=== PATIENT | female | born 1975 | race Caucasian/White ===

== ENCOUNTER 2017-10-26 02:07 | Inpatient (IN) | payer OTHER ==
[~2017-10-26] VITALS: Ht 162.6 cm; Wt 86.2 kg
[2017-10-26 04:00] LABS: ABSOLUTE BASOPHIL COUNT 0 /CUMM (0.0-0.2); ABSOLUTE EOSINOPHIL COUNT 0.1 /CUMM (0.0-0.7); ABSOLUTE GRANULOCYTE CT 6.2 /CUMM (1.4-6.5); ABSOLUTE LYMPH COUNT 1.8 /CUMM (1.2-3.4); ABSOLUTE MONOCYTE COUNT 0.7 /CUMM (0.10-0.60); BASOPHIL % 0.3 % (0.0-2.0); EOSINOPHIL % 0.9 % (0-5); GRANULOCYTE % 70.2 % (42.2-75.2); HEMATOCRIT 36.5 % (37-47); MEAN CORPUSCULAR HGB 29.3 PG (27.0-31.0); MEAN CORPUSCULAR HGB CONC 33.7 G/DL (33.0-37.0); MEAN CORPUSCULAR VOLUME 86.7 FL (81.0-99.0); MEAN PLATELET VOLUME 8.6 FL (7.4-10.4); PLATELET COUNT 247 /CUMM (130-400); RBC DISTRIBUTION WIDTH 13.4 % (11.5-14.5); RED BLOOD CELL CT 4.22 /CUMM (4.20-5.40); WHITE BLOOD CELL COUNT 8.9 /CUMM (4.8-10.8)
--- NOTE | 2017-10-26 05:24 | ED GI/GU/ABDOMINAL COMPLAINT ---
History of Present Illness General Chief Complaint: Abdominal Pain/Flank Pain Stated Complaint: ABD PAIN Source: patient Exam Limitations: no limitations Vital Signs & Intake/Output Vital Signs & Intake/Output Vital Signs Date Time Temp Pulse Resp B/P B/P Pulse O2 O2 Flow FiO2 Mean Ox Delivery Rate 10/26 0551 96 Room Air 10/26 0550 96.7 95 18 112/69 96 Room Air 10/26 0213 96.7 120 22 104/71 100 Room Air Allergies Coded Allergies: No Known Allergies (10/26/17) Triage Note: PT TO TRIAGE C/O 04/12 STABBING UPPER ABD PAIN WITH N/V. PER PT PAIN IS INTERMITTENT SINCE AUGUST WHEN SHE WAS HOSPITALIZED FOR PANCREATITIS. PT REPORTS PAIN WORSENS WITH EATING. Triage Nurses Notes Reviewed? yes LMP (ages 10-50): unknown ? n Is pt currently ? No Onset: several days Duration: day(s):, continues in ED, intermittent Timing: recent history Quality/Severity: aching, sharpness, severe, stabbing Location: epigastric Radiation: no radiation Activities at Onset: eating Prior Abdominal Problems: similar symptoms Past Sexual History: Unobtainable at this time Modifying Factors: Worsens With: eating. Associated Symptoms: abdominal pain, loss of appetite, nausea/vomiting HPI: 3 months prior to admission patient reports being diagnosed with pancreatitis with unknown etiology [facility], [place]. She has undergone CT, ultrasound, endoscopy and colonoscopy. Several days prior to admission she complains of epigastric pain sharp some previous pancreatitis pain worse after eating waxing and waning nonradiating moderate to severe in quality. She does fever chills diarrhea chest pain cough shortness of breath headache dysuria rash bleeding. Past History Travel History Traveled to [place] past 21 day No Medical History Any Pertinent Medical History? 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 No Review of Systems Review of Systems Constitutional: Reports: no symptoms. EENTM: Reports: no symptoms. Respiratory: Reports: no symptoms. Cardiovascular: Reports: no symptoms. GI: Reports: see HPI, abdominal pain, nausea, vomiting. Genitourinary: Reports: no symptoms. Musculoskeletal: Reports: no symptoms. Skin: Reports: no symptoms. Neurological/Psychological: Reports: no symptoms. Hematologic/Endocrine: Reports: no symptoms. Immunologic/Allergic: Reports: no symptoms. All Other Systems: Reviewed and Negative Physical Exam Physical Exam General Appearance: well developed/nourished, alert, awake, anxious, moderate distress, obese Head: atraumatic, normal appearance Eyes: Bilateral: normal appearance, PERRL, EOMI, normal inspection. Ears, Nose, Throat, Mouth: hearing grossly normal, moist mucous membrane Neck: normal inspection, supple, full range of motion, normal alignment Respiratory: normal breath sounds, chest non-tender, no respiratory distress, quiet respiration, lungs clear Cardiovascular: regular rate/rhythm, normal peripheral pulses, norml femoral pulses equa Peripheral Pulses: 4+ carotid (R), 4+ carotid (L) Gastrointestinal: normal bowel sounds, soft, no organomegaly, tenderness Back: normal inspection, normal range of motion, no vertebral tenderness Extremities: normal range of motion, no ligament instability Neurologic/Psych: no motor/sensory deficits, awake, alert, oriented x 3, normal gait, normal mood/affect, 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 No Sepsis Present: No Sepsis Focused Exam Completed? No Mcewen's Criteria Sana's Criteria Response Value LDH > 350 IU/L on Admission yes 1 Total 1 Progress Differential Diagnosis: biliary colic, cholecystitis, gastritis, pancreatitis Plan of Care: Orders Procedure Date/time Status Nothing by Mouth 10/26 B Active Patient Data 10/26 614 Active US-LIMITED ABDOMEN 10/26 518 Active OXYGEN SETUP (GEN) 10/26 518 Active Saline Lock 10/26 518 Active Admit to inpatient 10/26 518 Active Add-on Test (ER Only) 10/26 518 Active Vital Signs 10/26 518 Active Activity/Ambulation 10/26 518 Active Code Status 10/26 518 Active LDH (LACT ACID DEHYDROGENASE) 10/26 035 Complete TROPONIN LEVEL 10/26 348 Complete LIPASE 10/26 348 Complete HUMAN BETA HCG SCREEN 10/26 348 Complete COMPREHENSIVE METABOLIC PANEL 10/26 348 Complete CBC WITHOUT DIFFERENTIAL 10/26 348 Complete AMYLASE 10/26 348 Complete Current Medications Sig/Brianna Start time Last Medication Dose Stop Time Status Admin Sodium Chloride 1,000 ML BOLUS ONE 10/26 05 AC 10/26 (Normal Saline 0.9%) 10/26 0529 0540 Laboratory Tests 10/26/17 0350: Anion Gap 11, Estimated GFR > 60, BUN/Creatinine Ratio 15.0, Glucose 116 H, Calcium 9.7, Total Bilirubin 0.6, AST 21, ALT 25, Alkaline Phosphatase 98, Lactate Dehydrogenase 398, Troponin I < 0.01, Total Protein 6.9, Albumin 4.1, Globulin 2.8, Albumin/Globulin Ratio 1.5, Amylase 407 H, Lipase 3949 H, Total Beta HCG NEGATIVE, CBC w Diff NO MAN DIFF REQ, RBC 4.22, MCV 86.7, MCH 29.3, MCHC 33.7, RDW 13.4, MPV 8.6, Gran % 70.2, Lymphocytes % 20.2 L, Monocytes % 8.4, Eosinophils % 0.9, Basophils % 0.3, Absolute Granulocytes 6.2, Absolute Lymphocytes 1.8, Absolute Monocytes 0.7 H, Absolute Eosinophils 0.1, Absolute Basophils 0 Initial ED EKG: none Departure Departure Disposition: STILL A PATIENT Condition: Stable Clinical Impression Primary Impression: Pancreatitis Referrals: Patient Has No Primary Care Dr (PCP/Family) Departure Forms: Customer Survey General Discharge Information Admission Note Spoke With: Gwen Penaloza MD Documentation of Exam: Documentation of any treatments & extenuating circumstances including Concerns Regarding Discharge (functional status, medication knowledge or non-compliance, living conditions, etc.) that warrant an admission rather than observation:
--- NOTE | 2017-10-26 07:55 | History & Physical ---
Alvaro Wheeler 10/26/17 0755: General Information and HPI MD Statement: I have seen and personally examined ALEXIA DOUGLASS and documented this H&P. The patient is a 42 year old F who presented with a patient stated chief complaint of worsening abdominal pain since last night. Source of Information: patient Exam Limitations: no limitations History of Present Illness: This is a healthy 42-year-old female with past medical history significant for hypothyroidism on [place] Thyroid, history of pancreatitis presented to the emergency department for evaluation of worsening abdomen pain since last night. Patient reports history of pancreatitis in the past. She was admitted to [facility] in August 2017 for acute pancreatitis, hospitalized for 4 days , CAT scan abdomen normal, on ultrasound no gall stones were found, amylase lipase elevated. she underwent endoscopy and colonoscopy, normal findings. she has been following up with naval inspector at [facility] since she had an episode of pancreatitis. she underwent gastric emptying study, gastroparesis was not found. she went to [facility] emergency room 2 weeks back for acute pancreatitis, discharged from the emergency room. she is supposed to get mri abdomen next week. She denies any alcohol abuse. No gallstones were found in prior ultrasound. Lipid panel was normal in the past. No etiology for acute pancreatitis was found according to the patient. Patient now came in with worsening epigastric abdominal pain, 10 out of 10, sharp radiating to her back associated with nausea, vomiting, shortness of breath. She reports that some kinds of food triggers her pancreatitis. She also reports heartburn. Denies any constipation, diarrhea, change in urine habits. Review of systems negative for fever, chills, shortness of breath, palpitations, chest pain, productive cough, generalized weakness, neurologic deficits. She denies smoking, alcohol abuse, illicit drug abuse. She lives with her and 3 children. Allergies/Medications Allergies: Coded Allergies: No Known Allergies (10/26/17) Home Med list Thyroid,Pork ([place] Thyroid) 30 MG TABLET 3 TAB PO DAILY THYROID (Reported) Compliance With Home Meds: GOOD Past History Travel History Traveled to [place] past 21 day No Medical History Neurological: NONE EENT: NONE Cardiovascular: NONE Respiratory: NONE Gastrointestinal: pancreatitis, HERNIA Hepatic: NONE Renal: NONE Musculoskeletal: NONE Psychiatric: NONE Endocrine: NONE Blood Disorders: NONE Cancer(s): NONE FACE MAN/Reproductive: NONE Surgical History Surgical History: non-contributory Past Family/Social History Family History Relations & Conditions if any Relation not specified for: *No pertinent family history Psychosocial History Smoking Status: Never Smoked ETOH Use: denies use Illicit Drug Use: denies illicit drug use Sexual History Past Sexual History Unobtainable at this time Review of Systems Review of Systems Constitutional: Denies: chills, diaphoresis, fever, malaise, weakness, unexplained weight loss. EENTM: Denies: blurred vision, double vision, visual changes. Cardiovascular: Denies: chest pain, edema, orthopena, palpitations, peripheral edema, syncope. Respiratory: Denies: cough, hemoptysis, orthopnea, short of breath, sputum production, stridor, wheezing. GI: Reports: abdominal pain, nausea, vomiting. Denies: bloating, constipation, diarrhea, distention, bowel incontinence, melena. Genitourinary: Denies: discharge, dysuria, frequency, hematuria, hesitation. Musculoskeletal: Denies: back pain, gout, joint pain, joint swelling. Skin: Denies: cysts, jaundice, lesions. Neurological/Psychological: Denies: anxiety, ataxia, confusion, depressed, dementia. Hematologic/Endocrine: Denies: bruising, bleeding, polyuria. Exam & Diagnostic Data Last 24 Hrs of Vital Signs/I&O Vital Signs Date Time Temp Pulse Resp B/P B/P Pulse O2 O2 Flow FiO2 Mean Ox Delivery Rate 10/26 0643 96.2 83 18 100/57 100 Room Air 10/26 0551 96 Room Air 10/26 0550 96.7 95 18 112/69 96 Room Air 10/26 0213 96.7 120 22 104/71 100 Room Air Intake & Output 10/26 1600 10/26 0800 10/26 0000 Intake Total 1000 Output Total Balance 1000 Intake, IV 1000 Patient 86.183 kg Weight Physical Exam General Appearance Alert, Oriented X3, Cooperative, No Acute Distress Skin No Rashes, No Breakdown, No Significant Lesion Skin Temp/Moisture Exam: Warm/Dry Sepsis Skin Exam (color): Normal for Ethnicity HEENT Atraumatic, PERRLA, EOMI, Mucous Membr. moist/pink Neck Supple, No JVD Lymphatic Axillary nl, Cervical nl Cardiovascular Regular Rate, Normal S1, Normal S2, No Murmurs Lungs Normal Air Movement Abdomen Normal Bowel Sounds, Soft, epigastric tenderness Neurological Strength at 5/5 X4 Ext, Normal Tone, Cranial Nerves 3-12 NL, Reflexes 2+ Extremities No Clubbing, No Cyanosis, No Edema Vascular Normal Pulses, Pulses Symmetrical Last 24 Hrs of Labs/Zheng: Laboratory Tests 10/26/17 0801: Triglycerides Cancelled, Cholesterol Cancelled, LDL Cholesterol, Calc Cancelled, HDL Cholesterol Cancelled, Cholesterol/HDL Ratio Cancelled 10/26/17 0350: Anion Gap 11, Estimated GFR > 60, BUN/Creatinine Ratio 15.0, Glucose 116 H, Calcium 9.7, Total Bilirubin 0.6, AST 21, ALT 25, Alkaline Phosphatase 98, Lactate Dehydrogenase 398, Troponin I < 0.01, Total Protein 6.9, Albumin 4.1, Globulin 2.8, Albumin/Globulin Ratio 1.5, Triglycerides 109, Cholesterol 208 H, LDL Cholesterol, Calc 138 H, HDL Cholesterol 49, Cholesterol/HDL Ratio 4, Amylase 407 H, Lipase 3949 H, Total Beta HCG NEGATIVE, CBC w Diff NO MAN DIFF REQ, RBC 4.22, MCV 86.7, MCH 29.3, MCHC 33.7, RDW 13.4, MPV 8.6, Gran % 70.2, Lymphocytes % 20.2 L, Monocytes % 8.4, Eosinophils % 0.9, Basophils % 0.3, Absolute Granulocytes 6.2, Absolute Lymphocytes 1.8, Absolute Monocytes 0.7 H, Absolute Eosinophils 0.1, Absolute Basophils 0 Assessment/Plan Assessment: This is a healthy 42-year-old female with past medical history significant for hypothyroidism on [place] Thyroid, history of pancreatitis presented to the emergency department for evaluation of worsening abdomen pain since last night. Patient reports history of pancreatitis in the past. She was admitted to [facility] in August 2017 for acute pancreatitis, hospitalized for 4 days , CAT scan abdomen normal, on ultrasound no gall stones were found, amylase lipase elevated. she underwent endoscopy and colonoscopy, normal findings. she has been following up with naval inspector at [facility] since she had an episode of pancreatitis. she underwent gastric emptying study, gastroparesis was not found. she went to [facility] emergency room 2 weeks back for acute pancreatitis, discharged from the emergency room. she is supposed to get mri abdomen next week. --------- Vitals afebrile, heart rate 120, respiratory rate 20, blood pressure 104/60 saturating at 100 on room air. Pertinent labs at the time of admission CBC, BEP within normal limit liver function tests normal troponin normal Amylase 47, lipase 3943 Patient received Dilaudid, Zofran, 1 L of normal saline bolus in the emergency room. Ultrasound abdomen 1. The gallbladder contains multiple tiny layering stones, with gallbladder wall thickening, fluid in the gallbladder wall and pericholecystic fluid. These findings are consistent with acute cholecystitis in the correct clinical setting. 1. Acute gallstone pancreatitis Patient presented with epigastric abdominal pain, 10 out of 10, sharp, radiating to back, nausea, vomiting, short of breath. Patient has prior history of pancreatitis in August 2017. She denies alcohol abuse. She is hemodynamically stable. Amylase and lipase were elevated 407, 3943. Ultrasound abdomen was done in the emergency room which showed gallstones and pericholecystic fluid consistent with acute cholecystitis. * Acute pancreatitis mostly from gallstone pancreatitis. * No alcohol abuse * Will check lipid panel * Admit to Gen.med for management of acute pancreatitis * Surgical consult for acute cholecystitis * nothing by mouth * IV Ringer lactate 125 mL per hour * Antiemetics * Pain management Tylenol, Toradol, diluted * IV Protonix * Follow-up surgery recommendations. Hypothyroidism continue home medication [place] Thyroid 90 mg Sunday to Sunday, 120 mg Sunday, Sunday DVT prophylaxis subcutaneous heparin, Alps Patient is nothing by mouth Full code Pain pathway ordered As Ranked By This Provider Problem List: 1. Pancreatitis Core Measures/Misc (05/20) Acute Coronary Syndrome ACS Diagnosis: No Congestive Heart Failure Congestive Heart Failure Diagnosis No Cerebrovascular Accident CVA/TIA Diagnosis: No VTE (View Protocol) VTE Risk Factors No risk factors No Mechanical VTE Prophylaxis d/t N/A MechProphylax Ordered No VTE Pharm Prophylaxis d/t NA PharmProphylax ordered Sepsis (View protocol) Sepsis Present: No Obdulia Claros MD 10/26/17 1230: Attending MD Review Statement Attending Statement Attending MD Statement: examined this patient, discuss w/resident/PA/DRAIN CLEANER PLUMBER, agreed w/resident/PA/DRAIN CLEANER PLUMBER, discussed with family, reviewed EMR data (avail), discussed with nursing, reviewed images, amended to note Attending Assessment/Plan: 42-year-old female with past medical history significant for hypothyroidism, on [place] Thyroid. Has been seen at [facility] with abdominal pain and had a pretty extensive workup done including CT abdomen, ultrasound, endoscopy and colonoscopy and gastric imaging study with no significant results found as reported by the patient who presents to [facility] emergency room with abdominal pain. It is mostly in the epigastric region but does radiate to back. It was severe in intensity. It is associated with nausea and vomiting. Food seems to aggravate it. Patient had an abdominal ultrasound in the emergency room which showed gallstone and evidence of acute cholecystitis. This is also high which is consistent with acute pancreatitis. Vital Signs Date Time Temp Pulse Resp B/P B/P Pulse O2 O2 Flow FiO2 Mean Ox Delivery Rate 10/26 0643 96.2 83 18 100/57 100 Room Air 10/26 0551 96 Room Air 10/26 0550 96.7 95 18 112/69 96 Room Air 10/26 0213 96.7 120 22 104/71 100 Room Air on exam; aox3, nad. cv; s1,s2, rrr resp; clear abd; soft, tender in epogastrium, bs+ ext; no edema Laboratory Tests 10/26 10/26 0801 0350 Chemistry Sodium (137 - 145 mmol/L) 141 Potassium (3.5 - 5.1 mmol/L) 3.9 Chloride (98 - 107 mmol/L) 105 Carbon Dioxide (22 - 30 mmol/L) 25 Anion Gap (5 - 16) 11 BUN (7 - 17 mg/dL) 12 Creatinine (0.5 - 1.0 mg/dL) 0.8 Estimated GFR (>60 ml/min) > 60 BUN/Creatinine Ratio (7 - 25 %) 15.0 Glucose (65 - 99 mg/dL) 116 H Calcium (8.4 - 10.2 mg/dL) 9.7 Total Bilirubin (0.2 - 1.3 mg/dL) 0.6 AST (14 - 36 U/L) 21 ALT (9 - 52 U/L) 25 Alkaline Phosphatase (<127 U/L) 98 Lactate Dehydrogenase (313 - 618 U/L) 398 Troponin I (< 0.11 ng/ml) < 0.01 Total Protein (6.3 - 8.2 g/dL) 6.9 Albumin (3.5 - 5.0 g/dL) 4.1 Globulin (1.9 - 4.2 gm/dL) 2.8 Albumin/Globulin Ratio (1.1 - 2.2 %) 1.5 Triglycerides (<150 mg/dL) Cancelled 109 Cholesterol (<200 MG/DL) Cancelled 208 H LDL Cholesterol, Calc (65 - 129 mg/dL) Cancelled 138 H HDL Cholesterol (40 - 60 mg/dL) Cancelled 49 Cholesterol/HDL Ratio (0.00 - 4.23 %) Cancelled 4 Amylase (30 - 110 U/L) 407 H Lipase (23 - 300 U/L) 3949 H Total Beta HCG (NEGATIVE) NEGATIVE Hematology CBC w Diff NO MAN DIFF REQ WBC (4.8 - 10.8 /CUMM) 8.9 RBC (4.20 - 5.40 /CUMM) 4.22 Hgb (12.0 - 16.0 G/DL) 12.3 Hct (37 - 47 %) 36.5 L MCV (81.0 - 99.0 FL) 86.7 MCH (27.0 - 31.0 PG) 29.3 MCHC (33.0 - 37.0 G/DL) 33.7 RDW (11.5 - 14.5 %) 13.4 Plt Count (130 - 400 /CUMM) 247 MPV (7.4 - 10.4 FL) 8.6 Gran % (42.2 - 75.2 %) 70.2 Lymphocytes % (20.5 - 51.1 %) 20.2 L Monocytes % (1.7 - 9.3 %) 8.4 Eosinophils % (0 - 5 %) 0.9 Basophils % (0.0 - 2.0 %) 0.3 Absolute Granulocytes (1.4 - 6.5 /CUMM) 6.2 Absolute Lymphocytes (1.2 - 3.4 /CUMM) 1.8 Absolute Monocytes (0.10 - 0.60 /CUMM) 0.7 H Absolute Eosinophils (0.0 - 0.7 /CUMM) 0.1 Absolute Basophils (0.0 - 0.2 /CUMM) 0 US abd: IMPRESSION: 1. The gallbladder contains multiple tiny layering stones, with gallbladder wall thickening, fluid in the gallbladder wall and pericholecystic fluid. These findings are consistent with acute cholecystitis in the correct clinical setting. 2. The visualized pancreas is unremarkable. A/P; 50-year-old female with history significant for chronic abdominal pain off and on who was admitted with acute on chronic abdominal pain, nausea and vomiting as well as acute pancreatitis and acute cholecystitis with gallstones. Patient admitted to medicine. She will be kept nothing by mouth, hydrated with IV fluids. She will be started on pain management as well as antiemetics. Please consult surgery. DVT px: Heparin subcutaneous. GI prophylaxis: IV Protonix. Patient is a full code. Discussed with family at bedside.
[2017-10-26] MEDS ORDERED: ARMOUR THYROID30 M1 PO (08:09)
--- NOTE | 2017-10-26 08:15 | ULTRASOUND REPORT ---
EXAMINATION: US ABDOMEN LIMITED CLINICAL INFORMATION: Epigastric pain, nausea and vomiting, lipase 4000. Assess for pancreatitis.. COMPARISON: None. TECHNIQUE: Real-time imaging of the right upper quadrant abdominal viscera was obtained. FINDINGS: PANCREAS: The visualized pancreatic head and body are normal in appearance. The remainder of the pancreas is obscured from visualization by the overlying bowel gas. LIVER: The liver demonstrates normal size, contour and echogenicity. No focal lesion or intrahepatic biliary duct dilatation. GALLBLADDER: The the gallbladder is moderately well distended. There are multiple tiny layering stones with posterior shadowing. The gallbladder wall is thickened measuring 0.8 cm, and there is some fluid in the gallbladder wall. The is pericholecystic fluid. The patient was not tender in the right, had been medicated one hour prior. COMMON BILE DUCT: Normal in caliber measuring 0.5 cm in diameter. RIGHT KIDNEY: There is no hydronephrosis. No renal calculi or focal parenchymal lesions. The kidney measures 9.8 cm in maximum dimension. FREE FLUID: None. IMPRESSION: 1. The gallbladder contains multiple tiny layering stones, with gallbladder wall thickening, fluid in the gallbladder wall and pericholecystic fluid. These findings are consistent with acute cholecystitis in the correct clinical setting. 2. The visualized pancreas is unremarkable.
--- NOTE | 2017-10-26 11:17 | Cons- General Surgery ---
General Information and HPI Consulting Request Date of Consult: 10/26/17 Requested By: ER Reason for Consult: pancreatitis History of Present Illness: This is a relatively healthy 42-year-old woman who presents to emergency room with recurrent episodic epigastric abdominal pain. She has been seen previously at another facility ERs. Diagnosis of pancreatitis was given without definitive etiology seen. Patient complains of recurrent epigastric abdominal pain beginning last night after a meal. It was quite severe in nature. She describes prior episodes more recently that were managed at home without need for medical attention. Currently she feels much better. Allergies/Medications Allergies: Coded Allergies: No Known Allergies (10/26/17) Home Med List: Thyroid,Pork ([place] Thyroid) 30 MG TABLET 3 TAB PO DAILY THYROID (Reported) Current Medications: Current Medications Sig/Brianna Start time Last Medication Dose Route Stop Time Status Admin Acetaminophen 650 MG Q6P PRN 10/26 0800 AC PO Enoxaparin Sodium 40 MG DAILY 10/26 1000 CAN SC Heparin Sodium 5,000 UNIT Q8 10/26 1400 UNVr (Porcine) SC Hydromorphone HCl 0.5 MG Q4P PRN 10/26 0800 UNVr IV Hydromorphone HCl 0 .STK-MED ONE 10/26 0548 DC .ROUTE Hydromorphone HCl 0.5 MG ONCE ONE 10/26 0530 DC 10/26 IV 10/26 0531 0549 Ketorolac 15 MG Q6P PRN 10/26 0800 AC Tromethamine IV Lactated Ringer's 1,000 ML Q8H 10/26 0815 AC 10/26 IV 0828 Non-Formulary 0 SEE ADMIN CRITERIA 10/26 0945 UNVr Medication ANY Ondansetron HCl 4 MG Q6P PRN 10/26 0815 AC IV Ondansetron HCl 0 .STK-MED ONE 10/26 0547 DC .ROUTE Ondansetron HCl 4 MG ONCE ONE 10/26 0530 DC 10/26 IV 10/26 0531 0549 Pantoprazole Sodium 0 .STK-MED ONE 10/26 1158 DC IV Pantoprazole Sodium 40 MG DAILY 10/26 1000 UNVr 10/26 IV 1201 Sodium Chloride 1,000 ML BOLUS ONE 10/26 0530 DC 10/26 IV 10/26 0629 0540 Past History Medical History Neurological: NONE EENT: NONE Cardiovascular: NONE Respiratory: NONE Gastrointestinal: pancreatitis Hepatic: NONE Renal: NONE Musculoskeletal: NONE Psychiatric: NONE Endocrine: hypothyroidism Blood Disorders: NONE 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 Remainder 12 points negative Exam & Diagnostic Data Vital Signs and I&O Vital Signs Date Time Temp Pulse Resp B/P B/P Pulse O2 O2 Flow FiO2 Mean Ox Delivery Rate 10/26 0643 96.2 83 18 100/57 100 Room Air 10/26 0551 96 Room Air 10/26 0550 96.7 95 18 112/69 96 Room Air 10/26 0213 96.7 120 22 104/71 100 Room Air Intake & Output 10/26 1600 10/26 0800 10/26 0000 10/25 1600 10/25 0800 10/25 0000 Intake Total 1000 Output Total Balance 1000 Intake, IV 1000 Patient 190 lb Weight Physical Exam: Gen.: She looks well her stated age no distress HEENT: Anicteric PERRL EOMI Abdomen: Soft nontender nondistended negative Durbin sign Extremities: no cyanosis clubbing or edema Last 24 Hours of Labs: Laboratory Tests 10/26 10/26 0801 0350 Chemistry Sodium (137 - 145 mmol/L) 141 Potassium (3.5 - 5.1 mmol/L) 3.9 Chloride (98 - 107 mmol/L) 105 Carbon Dioxide (22 - 30 mmol/L) 25 Anion Gap (5 - 16) 11 BUN (7 - 17 mg/dL) 12 Creatinine (0.5 - 1.0 mg/dL) 0.8 Estimated GFR (>60 ml/min) > 60 BUN/Creatinine Ratio (7 - 25 %) 15.0 Glucose (65 - 99 mg/dL) 116 H Calcium (8.4 - 10.2 mg/dL) 9.7 Total Bilirubin (0.2 - 1.3 mg/dL) 0.6 AST (14 - 36 U/L) 21 ALT (9 - 52 U/L) 25 Alkaline Phosphatase (<127 U/L) 98 Lactate Dehydrogenase (313 - 618 U/L) 398 Troponin I (< 0.11 ng/ml) < 0.01 Total Protein (6.3 - 8.2 g/dL) 6.9 Albumin (3.5 - 5.0 g/dL) 4.1 Globulin (1.9 - 4.2 gm/dL) 2.8 Albumin/Globulin Ratio (1.1 - 2.2 %) 1.5 Triglycerides (<150 mg/dL) Cancelled 109 Cholesterol (<200 MG/DL) Cancelled 208 H LDL Cholesterol, Calc (65 - 129 mg/dL) Cancelled 138 H HDL Cholesterol (40 - 60 mg/dL) Cancelled 49 Cholesterol/HDL Ratio (0.00 - 4.23 %) Cancelled 4 Amylase (30 - 110 U/L) 407 H Lipase (23 - 300 U/L) 3949 H Total Beta HCG (NEGATIVE) NEGATIVE Hematology CBC w Diff NO MAN DIFF REQ WBC (4.8 - 10.8 /CUMM) 8.9 RBC (4.20 - 5.40 /CUMM) 4.22 Hgb (12.0 - 16.0 G/DL) 12.3 Hct (37 - 47 %) 36.5 L MCV (81.0 - 99.0 FL) 86.7 MCH (27.0 - 31.0 PG) 29.3 MCHC (33.0 - 37.0 G/DL) 33.7 RDW (11.5 - 14.5 %) 13.4 Plt Count (130 - 400 /CUMM) 247 MPV (7.4 - 10.4 FL) 8.6 Gran % (42.2 - 75.2 %) 70.2 Lymphocytes % (20.5 - 51.1 %) 20.2 L Monocytes % (1.7 - 9.3 %) 8.4 Eosinophils % (0 - 5 %) 0.9 Basophils % (0.0 - 2.0 %) 0.3 Absolute Granulocytes (1.4 - 6.5 /CUMM) 6.2 Absolute Lymphocytes (1.2 - 3.4 /CUMM) 1.8 Absolute Monocytes (0.10 - 0.60 /CUMM) 0.7 H Absolute Eosinophils (0.0 - 0.7 /CUMM) 0.1 Absolute Basophils (0.0 - 0.2 /CUMM) 0 Imaging Results: Ultrasound shows gallstones with pericholecystic fluid. Common bile duct is normal. Assessment/Plan Assessment/Plan Gallstone Pancreatitis. It appears to be a mild case of pancreatitis which is already resolved clinically. Recommend laparoscopic cholecystectomy when and OR room is available. She is informed of the risks of the operation including bleeding, infection, conversion to open, organ injury and the presence of postcholecystectomy diarrhea. She agrees to proceed. Consult Acknowledgment - Thank you for your consult request.
--- NOTE | 2017-10-26 15:51 | Operative Report ---
Operative/Inv Procedure Report Surgery Date: 10/26/17 Name of Procedure: Laparoscopic cholecystectomy Pre-Operative Diagnosis: Biliary pancreatitis Post-Operative Diagnosis: Same Estimated Blood Loss: scant Surgeon/Datawarehouse Developer: Foreign Wyatt M.D./Milad ESCOBAR Anesthesia: general endotracheal tube Drains: None Specimens: Gallbladder Operative Indication: 42-year-old woman with mild acute pancreatitis due to gallstones. She presents for resection Operative/Procedure Note Note: After informed consent patient is brought to the operating room and laid supine. General anesthesia was obtained and her abdomen was prepped and draped. The skin above the umbilicus infiltrated with local anesthesia and a curvilinear incision made sharply. We came down through the subcutaneous tissues bluntly and grasped the fascia with [place]'s. A fasciotomy was created sharply and stay sutures placed. The peritoneum was entered sharply and a blunt [place] port was placed. Pneumoperitoneum was achieved. 3, 5 mm ports were placed in the epigastrium and right upper quadrant after local anesthesia was instilled and under direct vision the camera. She's placed in reverse Trendelenburg and rotated towards the left. The gallbladder is identified. It was grasped at the dome and retracted towards the head. Infundibulum was then grasped. Adhesions to the undersurface were taken down with blunt and cautery dissection. We dissected both sides the triangle Cal[place] peritoneal tissue with cautery. There is diffuse watery inflammatory changes of the gallbladder and the triangle of Calot. The artery was medial and its normal anatomic position. It was cauterized medially to allow it to be mobilized away from the duct. In doing so , multiple branches of the artery were divided with cautery. The main branch was lower down. We clipped ligated the terminal branches of the artery. [place] was cleared of areolar tissue with cautery. The duct were doubly ligated with clips. Gallbladder is removed from the fossa electrocautery. It was placed in Endo Catch bag and cinched up. Right upper quadrant was and suction irrigated normal saline. Hemostasis achieved with cautery. The ports were then removed and the gallbladder delivered and passed off the field. The fascia was closed with 0 Vicryl suture. Skin incisions closed with 4-0 Vicryl. Steri-Strips and sterile dressing applied. Sponge and needle counts are correct.
[2017-10-26 17:53] VITALS: BP 92/64
[2017-10-26 21:12] VITALS: BP 98/50
--- NOTE | 2017-10-26 21:23 | PN- General Surgery ---
Subjective Subjective: POSTOP CHECK Katarzyna is now s/p lap cholecystectomy for gallstone pancreatitis. She tolerated the procedure well and returned to the [facility] floor in stable condition. She was tachycardic and borderline hypotensive shortly after arrival to the floor, but this is improving with po intake. At this time, she c/o sore throat and some "gas bubbling" in her abdomen, but no significant pain. The pain she had prior to surgery has completely resolved. She is tolerating clear liquids. No nausea or vomiting. Voided x 2. Otherwise denies PLASENCIA, dizziness, chest pain, SOB. Objective Vital Signs and I&Os Vital Signs Date Time Temp Pulse Resp B/P B/P Pulse O2 O2 Flow FiO2 Mean Ox Delivery Rate 10/26 2111 98.5 85 18 98/50 96 10/26 1753 97.9 106 18 92/64 96 Room Air 10/26 0643 96.2 83 18 100/57 100 Room Air 10/26 0551 96 Room Air 10/26 0550 96.7 95 18 112/69 96 Room Air 10/26 0213 96.7 120 22 104/71 100 Room Air Intake & Output 10/26 1600 10/26 0800 10/26 0000 10/25 1600 10/25 0800 10/25 0000 Intake Total 1000 Output Total Balance 1000 Intake, IV 1000 Patient 190 lb Weight Physical Exam: Gen: Pt is awake and alert. NAD. Cardiac: regular Pulmonary: CTA bilaterally. No wheezes or rales appreciated. Abdomen: Soft and nondistended. Mild tenderness in the upper abdomen, within expected limits. Dressings are clean and intact. Normal BS are heard. Assessment/Plan Assessment/Plan Pt is a 42 yo F who is s/p lap elina for gallstone pancreatitis. She remains stable from a surgical standpoint. -Ok to advance diet as tolerated. -Pain control as needed with tylenol, toradol, or dilaudid based on pain scale. -Monitor vitals. If BP remains stable for another couple of hours and pt continues to take adequate po, ok to heplock IVF. -SC heparin for DVT ppx. Alps when in bed. Encourage ambulation. -Protonix for GI ppx. -Labs in AM. Core Measures Venous Thromboembolism VTE Risk Factors Surgery No Mechanical VTE Prophylaxis d/t N/A MechProphylax Ordered No VTE Pharm Prophylaxis d/t NA PharmProphylax ordered
[2017-10-27 00:54] VITALS: BP 118/84
--- NOTE | 2017-10-27 04:54 | PN- Housestaff ---
See Addendum Subjective Follow-up For: Pancreatitis Acute Cholecysitis Subjective: Ms Sun was seen and examined this morning. She is resting comfortably in bed. She reports that she was finally able to get some rest although stated that she had to be given pain medications multiple times before they finally kicked in. This morning she says she is began to tolerate by mouth fluids well and states that the pain in her epigastric region is better. She does state that she feels like she has an excessive amount of flatulence/gas in her abdomen. She states that she's had a hard time getting rid of this in the past. She denies any fever, chills, nausea, vomiting. Review of Systems Constitutional: Reports: see HPI. Objective Last 24 Hrs of Vital Signs/I&O Vital Signs Date Time Temp Pulse Resp B/P B/P Pulse O2 O2 Flow FiO2 Mean Ox Delivery Rate 10/27 0622 98.7 84 20 108/68 95 10/27 0054 118/84 10/26 2112 98.5 85 18 98/50 96 10/26 1753 97.9 106 18 92/64 96 Room Air Intake & Output 10/27 0800 10/27 0000 10/26 1600 Intake Total 1000 500 Output Total 1800 1800 Balance -800 -1300 Intake, IV 1000 500 Output, Urine 1800 1800 Patient 86.183 kg Weight Physical Exam General Appearance: Alert, Oriented X3, Cooperative Sepsis Skin Exam (color): Normal for Ethnicity HEENT: Mucous Membr. moist/pink Neck: Supple Lymphatic: Cervical nl Cardiovascular: Regular Rate, Normal S1, Normal S2 Lungs: Clear to Auscultation Abdomen: Normal Bowel Sounds, Soft, No Tenderness, Multiple Bandages in place. These are the result of surigical procedure that she underwent last evening. Mild Tendereness noted in these regions. Sites Clean, dry, intact. Extremities: No Edema Last 24 Hrs of Lab/Zheng Results Last 24 Hrs of Labs/Mics: Laboratory Tests 10/27/17 0735: Sodium Pending, Potassium Pending, Chloride Pending, Carbon Dioxide Pending, Anion Gap Pending, BUN Pending, Creatinine Pending, BUN/Creatinine Ratio Pending , CBC w Diff Pending, WBC Pending, RBC Pending, Hgb Pending, Hct Pending, MCV Pending, MCH Pending, MCHC Pending, RDW Pending, Plt Count Pending, MPV Pending 10/26/17 0801: Triglycerides Cancelled, Cholesterol Cancelled, LDL Cholesterol, Calc Cancelled, HDL Cholesterol Cancelled, Cholesterol/HDL Ratio Cancelled Assessment/Plan Assessment: Ms Perla 42-year-old female with past medical history significant for hypothyroidism on [place] Thyroid, history of pancreatitis presented to the emergency department for evaluation of worsening abdomen pain on 10/26/2017. Patient reports history of pancreatitis in the past. She was admitted to [facility] in August 2017 for acute pancreatitis, hospitalized for 4 days , CAT scan abdomen normal, on ultrasound no gall stones were found, amylase lipase elevated. she underwent endoscopy and colonoscopy, normal findings. 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 she underwent gastric emptying study, gastroparesis was not found. she went to [facility] emergency room 2 weeks back for acute pancreatitis, discharged from the emergency room. she was scheduled to get an mri abdomen next week. Based on her symptoms and clinical findings at the time of admission she was admitted to the Gen. medical service and taken for a laparoscopic cholecystectomy under surgery. She appears to have tolerated the procedure well. She is currently on general medicine for medical management. 1. Acute gallstone pancreatitis Patient presented with epigastric abdominal pain, 10 out of 10, sharp, radiating to back, nausea, vomiting, short of breath. Patient has prior history of pancreatitis in August 2017. She denies alcohol abuse. She is hemodynamically stable. Amylase and lipase were elevated 407, 3943. Ultrasound abdomen was done in the emergency room which showed gallstones and pericholecystic fluid consistent with acute cholecystitis. She is a lot more comfotable at the moment and seems to be tolerating PO intake. * Acute pancreatitis mostly from gallstone pancreatitis. * No alcohol abuse * Will check lipid panel * Continue Gen.med for management of acute pancreatitis * Post Op Day 1 * IV Ringer lactate 125 mL per hour * Antiemetics * Pain management Tylenol, Toradol, Morphine was added for additional relief. * Simethicone for relief. * IV Protonix * Follow-up surgery recommendations. #Hypothyroidism Continue [place] Thyroid 90 mg Sunday to Sunday, 120 mg Sunday, Sunday DVT prophylaxis subcutaneous heparin, Alps Patient is on a clear liquid diet, may consider advancing this evening if no contraindcations. Full code Problem List: 1. Biliary acute pancreatitis 2. Pancreatitis Pain Ratin Pain Location: Epigastric Pain Goal: Remain pain free Pain Plan: Morphine, Diluadid and Tylenol Tomorrow's Labs & Rationales: No Labs if patient is stable over the course of the day. If not, may consider CBC and BEP Pain Ratin Pain Location: Epigastric Pain Goal: Remain pain free Pain Plan: Morphine, Diluadid and Tylenol Tomorrow's Labs & Rationales: NA
[2017-10-27 06:22] VITALS: BP 108/68
--- NOTE | 2017-10-27 08:14 | PN- General Surgery ---
See Addendum Subjective Subjective: Patient seen and evaluated. Tolerating clear diet with associated n/v. She continues to have epigastric non-radiating abdominal pain that was worse overnight and seems to be improving this morning. She has been oob. No nausea or vomiting. Voided without difficutly . Otherwise denies PLASENCIA, dizziness, chest pa Objective Vital Signs and I&Os Vital Signs Date Time Temp Pulse Resp B/P B/P Pulse O2 O2 Flow FiO2 Mean Ox Delivery Rate 10/27 06 98.7 84 20 108/68 95 10/27 0054 118/84 10/26 2111 98.5 85 18 98/50 96 10/26 1753 97.9 106 18 92/64 96 Room Air Intake & Output 10/27 1600 10/27 0810/27 0000 10/26 1600 10/26 0810/26 0000 Intake Total 0739 609 4576 Output Total 1800 1800 Balance -800 -1300 1000 Intake, IV 4750 674 6632 Output, Urine 1800 1800 Patient 190 lb 190 lb Weight Physical Exam: Gen: Pt is awake and alert. NAD. Cardiac: regular Pulmonary: CTA bilaterally. No wheezes or rales appreciated. Abdomen: Soft and nondistended. dressings c/d/i, bowel sounds present, some tenderness steve-incisional, no gaurding/distention Current Medications: Current Medications Sig/Brianna Start time Last Medication Dose Route Stop Time Status Admin Acetaminophen 650 MG Q6P PRN 10/26 0800 AC PO Enoxaparin Sodium 40 MG DAILY 10/26 1000 CAN SC Fentanyl Citrate 100 MCG .STK-MED ONE 10/26 1425 DC IM 10/26 1426 Fentanyl Citrate 100 MCG .STK-MED ONE 10/26 1425 DC IM 10/26 1426 Heparin Sodium 5,000 UNIT Q8 10/26 1400 AC 10/27 (Porcine) SC 0459 Hydromorphone HCl 1 MG ONCE ONE 10/27 0115 DC 10/27 IV 10/27 0116 0120 Hydromorphone HCl 0.5 MG Q4P PRN 10/26 0800 AC 10/26 IV 2348 Ketorolac 30 MG .STK-MED ONE 10/26 1840 DC Tromethamine IM 10/26 1841 Ketorolac 15 MG Q6P PRN 10/26 0800 AC 10/27 Tromethamine IV 0024 Lactated Ringer's 1,000 ML Q8H 10/26 0815 AC 10/27 IV 0339 Meperidine HCl 50 MG .STK-MED ONE 10/26 1613 DC IM 10/26 1614 Midazolam HCl 2 MG .STK-MED ONE 10/26 1426 DC IM 10/26 1427 Morphine Sulfate 2 MG Q6P PRN 10/27 0800 AC IV Non-Formulary 0 SEE ADMIN CRITERIA 10/26 0945 CAN Medication ANY Ondansetron HCl 4 MG Q6P PRN 10/26 0815 AC IV Pantoprazole Sodium 0 .STK-MED ONE 10/26 1158 DC IV Pantoprazole Sodium 40 MG DAILY 10/26 1000 AC 10/27 IV 0743 Phenol 2 SPRAY Q2P PRN 10/26 2130 AC 10/26 EXT 2139 Thyroid 1.5 GR MoTuWeThFr@0700 10/29 0700 AC PO Thyroid 2 GR SuSa 10/27 1353 DC PO Thyroid 2 GR SuSa@0700 10/27 0700 AC 10/27 PO 0744 Thyroid 1.5 GR MoTuWeThFr 10/26 1354 DC 10/26 PO 2139 Results Last 48 Hours of Labs: Laboratory Tests 10/27 10/26 10/26 0735 0801 0350 Chemistry Sodium (137 - 145 mmol/L) Pending 141 Potassium (3.5 - 5.1 mmol/L) Pending 3.9 Chloride (98 - 107 mmol/L) Pending 105 Carbon Dioxide (22 - 30 mmol/L) Pending 25 Anion Gap (5 - 16) Pending 11 BUN (7 - 17 mg/dL) Pending 12 Creatinine (0.5 - 1.0 mg/dL) Pending 0.8 Estimated GFR (>60 ml/min) > 60 BUN/Creatinine Ratio (7 - 25 %) Pending 15.0 Glucose (65 - 99 mg/dL) 116 H Calcium (8.4 - 10.2 mg/dL) 9.7 Total Bilirubin (0.2 - 1.3 mg/dL) 0.6 AST (14 - 36 U/L) 21 ALT (9 - 52 U/L) 25 Alkaline Phosphatase (<127 U/L) 98 Lactate Dehydrogenase (313 - 618 U/L) 398 Troponin I (< 0.11 ng/ml) < 0.01 Total Protein (6.3 - 8.2 g/dL) 6.9 Albumin (3.5 - 5.0 g/dL) 4.1 Globulin (1.9 - 4.2 gm/dL) 2.8 Albumin/Globulin Ratio (1.1 - 2.2 %) 1.5 Triglycerides (<150 mg/dL) Cancelled 109 Cholesterol (<200 MG/DL) Cancelled 208 H LDL Cholesterol, Calc (65 - 129 mg/dL) Cancelled 138 H HDL Cholesterol (40 - 60 mg/dL) Cancelled 49 Cholesterol/HDL Ratio (0.00 - 4.23 %) Cancelled 4 Amylase (30 - 110 U/L) 407 H Lipase (23 - 300 U/L) 3949 H Total Beta HCG (NEGATIVE) NEGATIVE Hematology CBC w Diff Pending NO MAN DIFF REQ WBC (4.8 - 10.8 /CUMM) Pending 8.9 RBC (4.20 - 5.40 /CUMM) Pending 4.22 Hgb (12.0 - 16.0 G/DL) Pending 12.3 Hct (37 - 47 %) Pending 36.5 L MCV (81.0 - 99.0 FL) Pending 86.7 MCH (27.0 - 31.0 PG) Pending 29.3 MCHC (33.0 - 37.0 G/DL) Pending 33.7 RDW (11.5 - 14.5 %) Pending 13.4 Plt Count (130 - 400 /CUMM) Pending 247 MPV (7.4 - 10.4 FL) Pending 8.6 Gran % (42.2 - 75.2 %) 70.2 Lymphocytes % (20.5 - 51.1 %) 20.2 L Monocytes % (1.7 - 9.3 %) 8.4 Eosinophils % (0 - 5 %) 0.9 Basophils % (0.0 - 2.0 %) 0.3 Absolute Granulocytes (1.4 - 6.5 /CUMM) 6.2 Absolute Lymphocytes (1.2 - 3.4 /CUMM) 1.8 Absolute Monocytes (0.10 - 0.60 /CUMM) 0.7 H Absolute Eosinophils (0.0 - 0.7 /CUMM) 0.1 Absolute Basophils (0.0 - 0.2 /CUMM) 0 Assessment/Plan Assessment/Plan Pt is a 42 yo F who is s/p lap elina for gallstone pancreatitis. She remains stable from a surgical standpoint. -Ok to advance diet as tolerated. -Pain control as needed with tylenol, toradol, or dilaudid based on pain scale. Could use PO meds only -SC heparin for DVT ppx. Alps when in bed. Encourage ambulation. -Protonix for GI ppx. -f/u Labs - other medical managment of pancreatitis per primary medical team Core Measures Venous Thromboembolism VTE Risk Factors Surgery No Mechanical VTE Prophylaxis d/t N/A MechProphylax Ordered No VTE Pharm Prophylaxis d/t NA PharmProphylax ordered
[2017-10-27 09:22] LABS: ABSOLUTE BASOPHIL COUNT 0 /CUMM (0.0-0.2); ABSOLUTE EOSINOPHIL COUNT 0 /CUMM (0.0-0.7); ABSOLUTE GRANULOCYTE CT 7.5 /CUMM (1.4-6.5); ABSOLUTE MONOCYTE COUNT 0.8 /CUMM (0.10-0.60); BASOPHIL % 0.1 % (0.0-2.0); EOSINOPHIL % 0 % (0-5); GRANULOCYTE % 80.5 % (42.2-75.2); MEAN CORPUSCULAR HGB 29.2 PG (27.0-31.0); MEAN CORPUSCULAR HGB CONC 33.7 G/DL (33.0-37.0); MEAN CORPUSCULAR VOLUME 86.8 FL (81.0-99.0); MEAN PLATELET VOLUME 9.2 FL (7.4-10.4); PLATELET COUNT 203 /CUMM (130-400); RBC DISTRIBUTION WIDTH 13.2 % (11.5-14.5); RED BLOOD CELL CT 3.54 /CUMM (4.20-5.40); WHITE BLOOD CELL COUNT 9.3 /CUMM (4.8-10.8)
[2017-10-27 11:45] LABS: HEMATOCRIT 30.8 % (37-47)
[2017-10-27 16:00] VITALS: BP 118/70
[2017-10-27 21:48] VITALS: BP 110/64
[2017-10-28 06:47] VITALS: BP 110/72
--- NOTE | 2017-10-28 08:12 | PN- Housestaff ---
Beny Aquinoruben 10/28/17 0811: Subjective Follow-up For: Gallstone pancreatitis Cholecystectomy Subjective: I have seen and examined the patient. Patient tolerated full liquid diet and she is feeling better today. Patient already ambulates. Bili advance the diet to low-fat diet and also check LFTs if everything is stable patient can be discharged today and follow up with surgery in 10 days. No nausea, vomiting, diarrhea, fever, chest pain, headache Review of Systems Constitutional: Reports: see HPI. Objective Last 24 Hrs of Vital Signs/I&O Vital Signs Date Time Temp Pulse Resp B/P B/P Pulse O2 O2 Flow FiO2 Mean Ox Delivery Rate 10/28 0647 98.2 70 20 110/72 96 10/27 2148 97.7 80 18 110/64 90 10/27 1600 98.6 94 18 118/70 98 Room Air 10/27 1214 98.1 Intake & Output 10/28 1600 10/28 0800 10/28 0000 Intake Total 550 Output Total Balance 550 Intake, IV 150 Intake, Oral 400 Physical Exam General Appearance: Alert, Oriented X3, Cooperative, No Acute Distress Cardiovascular: Regular Rate, Normal S1, Normal S2 Lungs: Clear to Auscultation, Normal Air Movement Abdomen: mutiple bandages due to lap choly, mild tenderness Extremities: No Clubbing, No Cyanosis, No Edema Assessment/Plan Assessment: Ms Perla 42-year-old female with past medical history significant for hypothyroidism on [place] Thyroid, history of pancreatitis presented to the emergency department for evaluation of worsening abdomen pain on 10/26/2017. Patient reports history of pancreatitis in the past. She was admitted to [facility] in August 2017 for acute pancreatitis, hospitalized for 4 days , CAT scan abdomen normal, on ultrasound no gall stones were found, amylase lipase elevated. she underwent endoscopy and colonoscopy, normal findings. she has been following up with face hardener at [facility] since she had an episode of pancreatitis. she underwent gastric emptying study, gastroparesis was not found. she went to [facility] emergency room 2 weeks back for acute pancreatitis, discharged from the emergency room. she was scheduled to get an mri abdomen next week. Based on her symptoms and clinical findings at the time of admission she was admitted to the Gen. medical service and taken for a laparoscopic cholecystectomy under surgery. She appears to have tolerated the procedure well. She is currently on general medicine for medical management. 1. Acute gallstone pancreatitis Patient presented with epigastric abdominal pain, 10 out of 10, sharp, radiating to back, nausea, vomiting, short of breath. Patient has prior history of pancreatitis in August 2017. She denies alcohol abuse. She is hemodynamically stable. Amylase and lipase were elevated 407, 3943. Ultrasound abdomen was done in the emergency room which showed gallstones and pericholecystic fluid consistent with acute cholecystitis. She is a lot more comfotable at the moment and seems to be tolerating PO intake. * Acute pancreatitis mostly from gallstone pancreatitis. * No alcohol abuse * Post Op Day 2 * Antiemetics * Pain management Tylenol, Toradol, Morphine was added for additional relief. * Simethicone for relief. * IV Protonix * Follow-up surgery recommendations * LFTs were elevated yesterday we will recheck it today and if it is trending down patient can be discharged #Hypothyroidism * Continue [place] Thyroid 90 mg Sunday to Sunday, 120 mg Sunday, Sunday Housekeeping DVT prophylaxis is heparin and mechanical, low-fat diet, pain management as above, full code Problem List: 1. Pancreatitis 2. Biliary acute pancreatitis Pain Ratin Pain Location: abdomen Pain Goal: Pain 4 or less Pain Plan: same Tomorrow's Labs & Rationales: cbc bep Federico Oliva MD 10/28/17 1526: Attending MD Review Statement Attending Statement Attending MD Statement: examined this patient, discuss w/resident/PA/PROCUREMENT SERVICES MANAGER, agreed w/resident/PA/PROCUREMENT SERVICES MANAGER Attending Assessment/Plan: A/P; 50-year-old female with history significant for chronic abdominal pain off and on who was admitted with acute on chronic abdominal pain, nausea and vomiting as well as acute pancreatitis and acute cholecystitis with gallstones. Patient admitted to medicine. S/P laparoscopic cholecystectomy. Postoperative day #2. Patient doing fine today denies any complaints of nausea vomiting still has minimal abdominal pain which is better tolerating clear liquids. Liver function tests were nonsignificant for new changes. Tolerating by mouth diet. We will discharge the patient and follow with surgery in about a week..
--- NOTE | 2017-10-28 09:35 | PN- General Surgery ---
Subjective Subjective: Patient well, complains of a little bit of soreness in the right upper quadrant region as expected. No difficulty eating, no pain after eating, no pain radiating into the back, no nausea no vomiting. Objective Vital Signs and I&Os Vital Signs Date Time Temp Pulse Resp B/P B/P Pulse O2 O2 Flow FiO2 Mean Ox Delivery Rate 10/28 0647 98.2 70 20 110/72 96 10/27 2148 97.7 80 18 110/64 90 10/27 1600 98.6 94 18 118/70 98 Room Air 10/27 1214 98.1 Intake & Output 10/28 1600 10/28 0800 10/28 0000 10/27 1600 10/27 0800 10/27 0000 Intake Total 550 2000 1000 500 Output Total 1200 1800 1800 Balance 550 800 -800 -1300 Intake, IV 150 1000 1000 500 Intake, Oral 400 1000 Output, Urine 1200 1800 1800 Patient 190 lb Weight Physical Exam: Well-developed well-nourished no apparent distress. HEENT: Atraumatic, extraocular motion intact Neck: Supple, no lymphadenopathy Respiratory: No respiratory distress Abdomen: Incision sites dressings are clean dry and intact. Appropriate tenderness in the right upper quadrant and periumbilical region. Abdomen is soft, nondistended, active bowel sounds Extremities: No edema, no calf pain Neuro: Alert and oriented x3 Psych: Mood affect normal, normal memory normal judgment. Skin: Warm and dry, no rash on exposed skin Results Last 48 Hours of Labs: Laboratory Tests 10/27 0735 Chemistry Sodium (137 - 145 mmol/L) 138 Potassium (3.5 - 5.1 mmol/L) 4.1 Chloride (98 - 107 mmol/L) 104 Carbon Dioxide (22 - 30 mmol/L) 25 Anion Gap (5 - 16) 10 BUN (7 - 17 mg/dL) 8 Creatinine (0.5 - 1.0 mg/dL) 0.7 Estimated GFR (>60 ml/min) > 60 BUN/Creatinine Ratio (7 - 25 %) 11.4 Total Bilirubin (0.2 - 1.3 mg/dL) 1.2 Direct Bilirubin (< 0.4 mg/dL) 0.9 H AST (14 - 36 U/L) 314 H ALT (9 - 52 U/L) 155 H Alkaline Phosphatase (<127 U/L) 121 Total Protein (6.3 - 8.2 g/dL) 5.6 L Albumin (3.5 - 5.0 g/dL) 3.1 L Hematology CBC w Diff NO MAN DIFF REQ WBC (4.8 - 10.8 /CUMM) 9.3 RBC (4.20 - 5.40 /CUMM) 3.54 L Hgb (12.0 - 16.0 G/DL) 10.4 L Hct (37 - 47 %) 30.8 L MCV (81.0 - 99.0 FL) 86.8 MCH (27.0 - 31.0 PG) 29.2 MCHC (33.0 - 37.0 G/DL) 33.7 RDW (11.5 - 14.5 %) 13.2 Plt Count (130 - 400 /CUMM) 203 MPV (7.4 - 10.4 FL) 9.2 Gran % (42.2 - 75.2 %) 80.5 H Lymphocytes % (20.5 - 51.1 %) 10.9 L Monocytes % (1.7 - 9.3 %) 8.5 Eosinophils % (0 - 5 %) 0 Basophils % (0.0 - 2.0 %) 0.1 Absolute Granulocytes (1.4 - 6.5 /CUMM) 7.5 H Absolute Lymphocytes (1.2 - 3.4 /CUMM) 1.0 L Absolute Monocytes (0.10 - 0.60 /CUMM) 0.8 H Absolute Eosinophils (0.0 - 0.7 /CUMM) 0 Absolute Basophils (0.0 - 0.2 /CUMM) 0 Assessment/Plan Assessment/Plan Gallstone pancreatitis postoperative day #2 status post laparoscopic cholecystectomy Surgically, she is doing well, LFTs were slightly elevated yesterday, would repeat today and if trending down, stable for discharge from a surgical standpoint. Pain medication as needed as outpatient Follow-up in 10 days in The office with Dr. Wyatt May shower with Band-Aids in place, change when went 10 pound weight lifting restriction until follow-up low fat diet Discussed with patient who understands and agrees with plan Core Measures Venous Thromboembolism VTE Risk Factors Surgery No Mechanical VTE Prophylaxis d/t N/A MechProphylax Ordered No VTE Pharm Prophylaxis d/t NA PharmProphylax ordered
--- NOTE | 2017-10-28 10:15 | Patient Discharge Instructions ---
Discharge Instructions General Discharge Information You were seen/treated for: pancreatitis due to gallstones and cholecystectomy Special Instructions: -Please follow-up with your primary care provider within 7 days after discharge. -Please follow-up with Dr. Wyatt your surgeon in 7 days after discharge -We have made changes to your home medications, please read the instructions carefully. -Please come back to the hospital if your symptoms got worse. Diet Recommended Diet: Low Fat Activity Full Activity/No Limits: Yes (as tolerated) Acute Coronary Syndrome Inclusion Criteria At DC or during hospital stay patient has or had the following: ACS DIAGNOSIS No Discharge Core Measures Meds if any: Prescribed or Continued at Discharge Meds if any: NOT Prescribed or Continued at Discharge Congestive Heart Failure Inclusion Criteria At DC or during hospital stay patient has or had the following: CHF DIAGNOSIS No Discharge Core Measures Meds if any: Prescribed or Continued at Discharge Meds if any: NOT Prescribed or Continued at Discharge Cerebrovascular accident Inclusion Criteria At DC or during hospital stay patient has or had the following: CVA/TIA Diagnosis No Discharge Core Measures Meds if any: Prescribed or Continued at Discharge Meds if any: NOT Prescribed or Continued at Discharge Venous thromboembolism Inclusion Criteria VTE Diagnosis No VTE Type NONE VTE Confirmed by (Test) NONE Discharge Core Measures - Per Current guidelines, there needs to be overlap - treatment for the first 5 days of Warfarin therapy. - If discharged on Warfarin prior to 5 days of - overlap therapy, the patient will need to be - assessed for post discharge needs including - *Post discharge parental anticoagulation - *Warfarin and/or parental anticoagulation education - *Follow up date to check INR post discharge At least 5 days overlap therapy as Inpatient No Meds if any: Prescribed or Continued at Discharge Note: Overlap Therapy is Warfarin and Anticoagulant Meds if any: NOT Prescribed or Continued at Discharge
[2017-10-28 11:03] LABS: ABSOLUTE BASOPHIL COUNT 0 /CUMM (0.0-0.2); ABSOLUTE EOSINOPHIL COUNT 0.1 /CUMM (0.0-0.7); ABSOLUTE GRANULOCYTE CT 3.3 /CUMM (1.4-6.5); ABSOLUTE LYMPH COUNT 3.5 /CUMM (1.2-3.4); ABSOLUTE MONOCYTE COUNT 0.4 /CUMM (0.10-0.60); BASOPHIL % 0.4 % (0.0-2.0); EOSINOPHIL % 0.8 % (0-5); GRANULOCYTE % 45.5 % (42.2-75.2); HEMATOCRIT 31.1 % (37-47); MEAN CORPUSCULAR HGB 29.3 PG (27.0-31.0); MEAN CORPUSCULAR HGB CONC 33.5 G/DL (33.0-37.0); MEAN CORPUSCULAR VOLUME 87.3 FL (81.0-99.0); PLATELET COUNT 190 /CUMM (130-400); RED BLOOD CELL CT 3.57 /CUMM (4.20-5.40); WHITE BLOOD CELL COUNT 7.2 /CUMM (4.8-10.8)
[2017-10-28 15:12] VITALS: BP 118/76
--- NOTE | 2017-10-28 15:24 | PN- General Surgery ---
Surgical Brief Attending Note Brief Attending Note: MUCH BETTER TODAY. PAIN RESOLVED. LFT REDUCED. OK FOR D/C. F/U TWO WEEKS.
--- NOTE | 2017-10-29 15:13 | Discharge Summary ---
Visit Information Visit Dates Admission Date: 10/26/17 Discharge Date: 10/28/17 Hospital Course Course Attending Physician: Federico Oliva MD Primary Care Physician: Patient Has No Primary Care Dr Other Care Providers: General surgery Consulting Request: Consulting Specialty: General Surgery Hospital Course: This is a healthy 42-year-old female with past medical history significant for hypothyroidism on [place] Thyroid, history of episodes of pancreatitis presented to the emergency department for evaluation of worsening abdomen pain for one day. She was admitted to [facility] in August 2017 for acute pancreatitis, hospitalized for 4 days, CAT scan abdomen was normal, no gall stones were found on ultrasound. she underwent endoscopy and colonoscopy, with normal findings. she has been following up with information technology analyst at [facility] since she had an episode of pancreatitis. she underwent gastric emptying study, whish was normal. 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 --------- Vitals afebrile, heart rate 120, respiratory rate 20, blood pressure 104/60 saturating at 100 on room air. Pertinent labs at the time of admission CBC, BEP within normal limit liver function tests normal troponin normal Amylase 47, lipase 3943 Patient received Dilaudid, Zofran, 1 L of normal saline bolus in the emergency room. Ultrasound abdomen 1. The gallbladder contains multiple tiny layering stones, with gallbladder wall thickening, fluid in the gallbladder wall and pericholecystic fluid. These findings are consistent with acute cholecystitis in the correct clinical setting. 1. Acute gallstone pancreatitis Patient presented with epigastric abdominal pain, 10 out of 10, sharp, radiating to back, nausea, vomiting, short of breath. Patient has prior history of pancreatitis in August 2017. She was hemodynamically stable. Amylase and lipase were elevated 407, 3943. Ultrasound abdomen was done in the emergency room which showed gallstones and pericholecystic fluid consistent with acute cholecystitis. She was admitted to general medicine for acute gallstone pancreatitis. She was nothing by mouth initially, given IV Ringer lactate, IV antiemetics, IV Protonix and IV pain medications. She was evaluated by general surgeon . She underwent laparoscopic cholecystectomy on 10/26/2017 for gallstone pancreatitis. She tolerated the procedure well and returned to the [facility] floor in stable condition. She was tachycardic and borderline hypotensive shortly after arrival to the floor, but this was improved with po intake. She tolerated clear liquid diet, with no nausea, vomiting. She was advanced to full regular diet at the time of discharge with no issues. Patient was found to have transaminitis 314, 155, trended down. She was advised to follow-up Dr. Wyatt general surgeon within 1 week after discharge. she was provided discharge instructions by general surgeon. Hypothyroidism continued home medication [place] Thyroid 90 mg Sunday to Sunday, 120 mg Sunday , Sunday DVT prophylaxis subcutaneous heparin, Alps. Full code Complications: NONE Allergies: Coded Allergies: No Known Allergies (10/26/17) Significant Procedures: Surgery Date: 10/26/17 Name of Procedure: Laparoscopic cholecystectomy Pre-Operative Diagnosis: Biliary pancreatitis Post-Operative Diagnosis: Same Estimated Blood Loss: scant Surgeon/Rotary Shear Cutter: Foreign Wyatt M.D./Milad ESCOBAR Anesthesia: general endotracheal tube Drains: None Specimens: Gallbladder Operative Indication: 42-year-old woman with mild acute pancreatitis due to gallstones. She presents for resection Operative/Procedure Note Note: After informed consent patient is brought to the operating room and laid supine. General anesthesia was obtained and her abdomen was prepped and draped. The skin above the umbilicus infiltrated with local anesthesia and a curvilinear incision made sharply. We came down through the subcutaneous tissues bluntly and grasped the fascia with Jeanne's. A fasciotomy was created sharply and stay sutures placed. The peritoneum was entered sharply and a blunt [place] port was placed. Pneumoperitoneum was achieved. 3, 5 mm ports were placed in the epigastrium and right upper quadrant after local anesthesia was instilled and under direct vision the camera. She's placed in reverse Trendelenburg and rotated towards the left. The gallbladder is identified. It was grasped at the dome and retracted towards the head. Infundibulum was then grasped. Adhesions to the undersurface were taken down with blunt and cautery dissection. We dissected both sides the triangle Calot peritoneal tissue with cautery. There is diffuse watery inflammatory changes of the gallbladder and the triangle of Calot. The artery was medial and its normal anatomic position. It was cauterized medially to allow it to be mobilized away from the duct. In doing so , multiple branches of the artery were divided with cautery. The main branch was lower down. We clipped ligated the terminal branches of the artery. [place] was cleared of areolar tissue with cautery. The duct were doubly ligated with clips. Gallbladder is removed from the fossa electrocautery. It was placed in Endo Catch bag and cinched up. Right upper quadrant was and suction irrigated normal saline. Hemostasis achieved with cautery. The ports were then removed and the gallbladder delivered and passed off the field. The fascia was closed with 0 Vicryl suture. Skin incisions closed with 4-0 Vicryl. Steri-Strips and sterile dressing applied. Sponge and needle counts are correct. Pertinent Lab Results: US FINDINGS FINDINGS: PANCREAS: The visualized pancreatic head and body are normal in appearance. The remainder of the pancreas is obscured from visualization by the overlying bowel gas. LIVER: The liver demonstrates normal size, contour and echogenicity. No focal lesion or intrahepatic biliary duct dilatation. GALLBLADDER: The the gallbladder is moderately well distended. There are multiple tiny layering stones with posterior shadowing. The gallbladder wall is thickened measuring 0.8 cm, and there is some fluid in the gallbladder wall. The is pericholecystic fluid. The patient was not tender in the right, had been medicated one hour prior. COMMON BILE DUCT: Normal in caliber measuring 0.5 cm in diameter. RIGHT KIDNEY: There is no hydronephrosis. No renal calculi or focal parenchymal lesions. The kidney measures 9.8 cm in maximum dimension. FREE FLUID: None. IMPRESSION: 1. The gallbladder contains multiple tiny layering stones, with gallbladder wall thickening, fluid in the gallbladder wall and pericholecystic fluid. These findings are consistent with acute cholecystitis in the correct clinical setting. 2. The visualized pancreas is unremarkable. Disposition Summary Disposition Principal Diagnosis: Acute gallstone pancreatitis Status post laparoscopic cholecystectomy Additional Diagnosis: History of hypothyroidism Discharge Disposition: home or self care Discharge Instructions General Discharge Information Code Status: Full Code Patient's Diet: Regular diet as tolerated Patient's Activity: As tolerated Follow-Up Instructions/Appts: Follow-up in 10 days in The office with Dr. Wyatt. May shower with Band-Aids in place. 10 pound weight lifting restriction until follow-up. low fat diet. Advised to follow-up with general surgeon in one week after discharge. Medications at Discharge Discharge Medications: Continue taking these medications: Thyroid,Pork ([place] Thyroid) 30 MG TABLET 3 Tablet ORAL DAILY Comments: Last Taken: 10/28/17 Time: 6:00 AM Copies To: Edmundo RIVERS,[employer]
== END 2017-10-28 16:22 | DRG 263 ==
LOC: ERH 02:07 → ERHI 05:19 → 2NB 05:19 → ENRESERV 16:01 → PACUH 16:02 → CMPBEDREQ 16:09 → ENTRNSPT 17:18 → EDTRNSPTSTS 17:25 → EDTRNSPT 17:25 → CMPTRNSPT 17:30 → 2NB 17:37
PROVIDERS: Emergency Medicine; Hospitalist; Internal Medicine
PROC: 0FT44ZZ Resection of Gallbladder, Percutaneous Endoscopic Approach (ICD-10-PCS; principal; 2017-10-26)
DX: K85.10 Biliary acute pancreatitis without necrosis or infection (principal); K80.00 Calculus of gallbladder with acute cholecystitis without obstruction; E03.9 Hypothyroidism, unspecified; K21.9 Gastro-esophageal reflux disease without esophagitis
CPT/HCPCS: 2NBSP; 36592; 82436; C9399; J0690; J1644; J1885; J2405; J7120